=== PATIENT | male | born 1980 | race Caucasian/White ===

== ENCOUNTER 2017-06-06 22:44 | Emergency (ER) | payer BC, MEDICAID ==
[~2017-06-06] VITALS: Ht 175.3 cm; Wt 64.5 kg
[~2017-06-06 22:44] MED LIST: ANTI10DR6 EACH EAR
[2017-06-06] MEDS ORDERED: LIDOcaine 0.5% W/epiNEPHrine 1:200,000 50ml vial IJ ONE (23:25)
[2017-06-06] MEDS ORDERED: LIDOcaine 1.5% w/epinephrine 1:200,000 5ml ampul IJ ONE (23:45)
[2017-06-07] MEDS ORDERED: IBUP-1984 PO (01:26)
[2017-06-07] MEDS ORDERED: CEPH-572 PO (01:26)
[2017-06-07] MEDS ORDERED: ACET1TAB12 PO (01:26)
[2017-06-07 02:00] VITALS: BP 135/67
== END 2017-06-07 02:02 | disposition home or self-care (01) ==
LOC: ER 22:44
DX: S01.112A Laceration without foreign body of left eyelid and periocular area, initial encounter (principal); S01.412A Laceration without foreign body of left cheek and temporomandibular area, initial encounter; S60.221A Contusion of right hand, initial encounter; Y04.8XXA Assault by other bodily force, initial encounter; Y93.89 Activity, other specified; Y92.89 Other specified places as the place of occurrence of the external cause; Y99.8 Other external cause status
CPT/HCPCS: 12013; 73130; 99284; A6449; J3490

== ENCOUNTER 2017-10-04 13:24 | Emergency (ER) | payer BC ==
[~2017-10-04] VITALS: Ht 597.6 cm; Wt 61.4 kg
[~2017-10-04 13:24] MED LIST changes: +ACET1TAB12 PO
[2017-10-04 13:33] VITALS: BP 156/94
[2017-10-04] MEDS ORDERED: HYDR-3965 PO (13:57)
[2017-10-04] MEDS ORDERED: PENI500T2 PO (13:57)
== END 2017-10-04 14:17 | disposition home or self-care (01) ==
LOC: ER 13:24
DX: K08.89 Other specified disorders of teeth and supporting structures (principal); Z79.899 Other long term (current) drug therapy; Z56.0 Unemployment, unspecified
CPT/HCPCS: 99283; 99284

== ENCOUNTER 2018-01-19 08:10 | Emergency (ER) | payer BC, MEDICAID ==
[~2018-01-19] VITALS: Ht 175.3 cm; Wt 68.0 kg
[2018-01-19 09:02] LABS: BASOPHILS # (AUTO) 0.1 X10'3 (0-0.2); BASOPHILS % (AUTO) 0.9 % (0-1); EOSINOPHILS # (AUTO) 0.1 X10'3 (0-0.9); EOSINOPHILS % (AUTO) 0.4 % (0-6); HEMATOCRIT 49.3 % (42.0-52.0); HEMOGLOBIN 16.6 g/dl (14.0-17.9); LYMPHOCYTES % (AUTO) 7.4 % (21-51); MEAN CORPUSCULAR HEMOGLOBIN 30.3 PG (27.0-31.0); MEAN CORPUSCULAR HGB CONC 33.7 % (33.0-36.5); MEAN PLATELET VOLUME 8.5 FL (7.4-10.4); MONOCYTES # (AUTO) 0.9 X10'3 (0-0.9); MONOCYTES % (AUTO) 6.7 % (2-12); NEUTROPHILS # (AUTO) 11.8 X10'3 (1.8-7.7); NEUTROPHILS % (AUTO) 84.6 % (42-75); PLATELET COUNT 280 X10'3 (140-440); RED BLOOD COUNT 5.48 X10'6 (4.70-6.10)
[2018-01-19 09:36] LABS: ALANINE AMINOTRANSFERASE 37 U/L (12-78); ALBUMIN 4.8 G/DL (3.4-5.0); ALBUMIN/GLOBULIN RATIO 1.3 (1.1-1.5); ALKALINE PHOSPHATASE 118 IU/L (46-116); ANION GAP 10 (8-16); ASPARTATE AMINO TRANSFERASE 35 U/L (10-37); BILIRUBIN,TOTAL 0.6 MG/DL (0.1-1.0); BLOOD UREA NITROGEN 9 MG/DL (7-18); BUN/CREATININE RATIO 9.9 (5.4-32.0); CALCIUM 9.5 MG/DL (8.5-10.1); CHLORIDE 99 MMOL/L (99-107); CREATININE 0.91 MG/DL (0.60-1.10); GLUCOSE 79 MG/DL (70-104); POTASSIUM 3.6 MMOL/L (3.5-5.1); SODIUM 140 MMOL/L (135-145); TOTAL PROTEIN 8.6 G/DL (6.4-8.2); eGFR > 90 ML/MIN
[2018-01-19] MEDS ORDERED: diphenhydrAMINE 25mg capsule PO ONE (09:45)
[2018-01-19] MEDS ORDERED: proCHLORperazine 10mg tablet PO ONE (09:45)
[2018-01-19 09:50] LABS: ETHANOL < 0.010 GM/DL (0.0-0.010)
[2018-01-19 10:28] LABS: PLATELET ESTIMATE NORMAL; TOTAL CELLS COUNTED 100
[2018-01-19 10:29] LABS: TOXIC GRANULATION 2+; TOXIC VACUOLATION FEW
[2018-01-19 10:33] LABS: CLARITY,URINE CLEAR (Clear); COLOR,URINE YELLOW (Yellow); GLUCOSE, URINE NEGATIVE (Neg); KETONES,URINE >=80 mg/dl (Neg); LEUKOCYTE ESTERASE ,URINE NEGATIVE (Neg); NITRITES, URINE NEGATIVE (Neg); OCCULT BLOOD,URINE NEGATIVE (Neg); PROTEIN,URINE 100 mg/dl (Neg)
[2018-01-19 10:42] LABS: UA COLLECTION TYPE CLN CATCH MIDSTREAM
[2018-01-19 10:44] LABS: URINE AMPHETAMINE SCREEN NEGATIVE (Neg); URINE BARBITUATE SCREEN NEGATIVE (Neg); URINE BENZODIAZEPINES SCREEN NEGATIVE (Neg); URINE CANNABINOID SCREEN NEGATIVE (Neg); URINE COCAINE SCREEN NEGATIVE (Neg); URINE METHADONE SCREEN NEGATIVE (Neg); URINE OPIATE SCREEN NEGATIVE (Neg); URINE PHENCYCLIDINE SCREEN NEGATIVE (Neg)
[2018-01-19 10:45] LABS: MUCUS STRANDS FEW /LPF (Neg); SQUAMOUS EPITHELIAL CELL,UR FEW /LPF (FEW)
[2018-01-19 10:47] LABS: BACTERIA,URINE NONE SEEN /HPF (Neg); RBC,URINE NONE SEEN /HPF (0-2); WBC,URINE 0-4 /HPF (0-4)
[2018-01-19] MEDS: citalopram 20mg tablet PO SCH (13:12)
[2018-01-20 05:36] VITALS: BP 133/76
[2018-01-20] MEDS: citalopram 20mg tablet PO SCH (09:26)
[2018-01-20] MEDS ORDERED: proCHLORperazine 10mg tablet PO PRN (13:20)
== END 2018-01-20 16:54 ==
LOC: ER 08:11
DX: R45.851 Suicidal ideations (principal); R11.2 Nausea with vomiting, unspecified; R19.7 Diarrhea, unspecified; R07.9 Chest pain, unspecified; R06.02 Shortness of breath; Z56.0 Unemployment, unspecified
CPT/HCPCS: 36415; 71046; 80053; 80305; 80320; 81001; 84443; 85025; 93005; 99285; Q0163; Q0164

== ENCOUNTER 2018-04-19 13:28 | Emergency (ER) | payer MEDICAID ==
[~2018-04-19] VITALS: Ht 175.3 cm; Wt 65.0 kg
[2018-04-19] MEDS ORDERED: HYDROcodone/acetaminophen 5mg/325mg tablet PO ONE (16:15)
[2018-04-19 16:27] VITALS: BP 144/78
== END 2018-04-19 16:28 | disposition home or self-care (01) ==
LOC: ER 13:28
DX: S60.221A Contusion of right hand, initial encounter (principal); Z79.899 Other long term (current) drug therapy; Z98.890 Other specified postprocedural states; Z56.0 Unemployment, unspecified; W22.8XXA Striking against or struck by other objects, initial encounter; Y93.89 Activity, other specified; Y92.89 Other specified places as the place of occurrence of the external cause; Y99.8 Other external cause status
CPT/HCPCS: 73130; 99283

== ENCOUNTER 2020-03-12 11:26 | Emergency (ER) | payer MEDICAID, OTHER ==
[~2020-03-12] VITALS: Ht 175.3 cm; Wt 63.6 kg
[2020-03-12 11:31] VITALS: BP 115/79
[2020-03-12] MEDS ORDERED: CYCL-1 PO (12:01)
[2020-03-12] MEDS ORDERED: IBUP-1984 PO (12:01)
== END 2020-03-12 12:32 | disposition home or self-care (01) ==
LOC: ER 11:27
DX: M54.5 Low back pain (principal); R20.0 Anesthesia of skin; G89.29 Other chronic pain; Z98.890 Other specified postprocedural states; Z79.899 Other long term (current) drug therapy
CPT/HCPCS: 99283

== ENCOUNTER 2024-11-20 11:52 | Emergency (ER) | payer MEDICAID ==
[~2024-11-20] VITALS: Ht 175.3 cm; Wt 61.7 kg
[~2024-11-20 11:52] MED LIST changes: +CYCL-1 PO
[2024-11-20 12:02] VITALS: TEMP 97.8; O2SAT 98
--- NOTE | 2024-11-20 12:30 | ELECTROCARDIOGRAPH REPORT ---
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
--- NOTE | 2024-11-20 13:10 | RADIOLOGY REPORT ---
EXAM: DI CHEST,SINGLE VIEW Indication: CP Technique: Single frontal view of the chest was obtained Comparison: None FINDINGS: Lines and Tubes: None Lungs: No focal consolidation. Pleura: No effusion. No pneumothorax. Cardiomediastinal contours: Unremarkable Bones: No acute osseous abnormality. IMPRESSION: No acute cardiopulmonary disease.
[2024-11-20 13:17] LABS: MEAN PLATELET VOLUME 9.2 FL (7.4-10.4); RED CELL DISTRIBUTION WIDTH 13.5 % (11.5-14.5)
[2024-11-20 13:31] LABS: CREATININE 0.67 MG/DL (0.60-1.10); PRO BRAIN NATRIURETIC PEPTIDE 31 PG/ML (0-125); TOTAL CARBON DIOXIDE 31.0 MMOL/L (24-32); eCRCL 125 ML/MIN; eGFR > 90 ML/MIN
--- NOTE | 2024-11-20 14:08 | Physician Documentation ---
History of Present Illness ~ Chief Complaint: Chest Pain Stated Complaint: CP LEFT ARM NUMBNESS Time Seen by MD: 12:59 Primary Medical Doctor: Bina Collazo NP Mode of Arrival: POV, Ambulatory HPI This 44-year-old male presents to the ED with a complaint of a few hours of left-sided chest pain that radiated numbness down to his left arm. States he does have a history of panic attacks but reports that he isn't think that that is what is going on. He denies any exacerbating or alleviating factors. says "just time makes the symptoms go away" Denies any cardiac or significant medical history however he says that has dad recently which has been bothering him. He adds that he does have a history of poorly managed stress and has large amounts of caffeine daily along with poor sleep. Denies any alcohol use at this time Tetanus within 5 Years?: No Allergies: Coded Allergies: No Known Allergies (Unverified , 11/20/24) Active Prescriptions See Medication Reconciliation Form. Medication Reconciliation Scheduled Antipyrine/Benzocaine (Antipyrine-Benzocaine Ear Drop), 2-4 DROP EACH EAR Q2H PRN Cyclobenzaprine* (Cyclobenzaprine*), 1 TAB PO Q8H Hydroxyzine Hcl* (Atarax*), 1 TAB PO Q12H Scheduled PRN Acetaminophen with Codeine (Tylenol with Codeine #3 Tablet), 1 TAB PO Q4HPRN PRN for pain Past Medical History Past Medical History: Chronic Back Pain Past Surgical History: orthopedic surgeries Alcohol Use: None Drug Use: none Lives with: Family Lives In: Home Occupation: employed Review of Systems All Other Systems at this time: Reviewed and Negative ROS As stated above in the HPI, otherwise all systems are reviewed and negative. Physical Exam Vital Signs: Temperature: 97.8, Source: Temporal, Heart Rate: 88, Respiratory Rate: 18, BP: 123/76, Pulse Oximetry: 98, Weight: 61.700 Physical Exam General: Alert, no apparent distress. Respiratory: Lungs clear, no respiratory distress. Cardiovascular: Regular rate and rhythm, no murmurs. Gastrointestinal: Soft, nontender, nondistended. Bowels sounds present. Neurologic: Oriented x4. Psychiatric: Normal mood and affect. Skin: Normal color, warm and dry. No edema, no ecchymosis. Progress Results/Orders Results/Orders Vital Signs 11/20/24 11/20/24 12:02 12:45 Temp 97.8 Pulse 88 Resp 18 18 B/P (MAP) 123/76 Pulse Ox 98 Laboratory Tests Test 11/20/24 11:58 White Blood Count 7.6 Red Blood Count 5.08 Hemoglobin 15.4 Hematocrit 45.8 Mean Corpuscular Volume 90.2 Mean Corpuscular Hemoglobin 30.3 Mean Corpuscular Hemoglobin Concent 33.6 Red Cell Distribution Width 13.5 Platelet Count 239 Mean Platelet Volume 9.2 Neutrophils (%) (Auto) 53.0 Lymphocytes (%) (Auto) 32.6 Monocytes (%) (Auto) 8.9 Eosinophils (%) (Auto) 4.3 Basophils (%) (Auto) 1.2 H Neutrophils # (Auto) 4.0 Lymphocytes # (Auto) 2.5 Monocytes # (Auto) 0.7 Eosinophils # (Auto) 0.3 Basophils # (Auto) 0.1 CBC Comment Sodium Level 139 Potassium Level 4.4 Chloride Level 104 Carbon Dioxide Level 31.0 Anion Gap 4 L Blood Urea Nitrogen 8 Creatinine 0.67 Estimated GFR/1.73 m2 > 90 BUN/Creatinine Ratio 11.9 Glucose Level 71 Calcium Level 9.2 Troponin I High Sensitivity < 4 L Troponin I High Sens Percent Delta Troponin I Hi Sens Absolute Change Pro-B-Type Natriuretic Peptide 31 Albumin 4.2 Chemistry Comments Medical Decision Making Findings This 44-year-old male presented anxious upon my entering into his ED room. He is very detailed history of symptoms presents more as poorly managed anxiety and/or stress rather than cardiac symptoms. His EKG was unremarkable as was his laboratory values. His symptoms have mostly mostly resolved. He had discussed with him that this is likely clinically correlated to anxiety. I do not see any reason to pursue any further evaluation that is cardiac in nature.. I recommended increase exercise decrease caffeine and better sleep cycling. Differential Dx:Considerations: Include: Chest wall contusion, Flail chest, Myocardial contusion, Pneumothorax, Pulmonary contusion, Rib fracture, Renal contusion, Splenic fracture, Tension pneumothorax, Other Departure Disposition: HOME / SELF CARE / HOMELESS Impression: Primary Impression: Chest wall pain Additional Impression: Anxiety about health Discharge Instructions: Managing Anxiety, Adult Referrals: NO PRIMARY CARE PROVIDER (PCP) Prescriptions Hydroxyzine Hcl* (Atarax*) 25 Mg Tablet 1 TAB PO Q12H for anxiety for 30 Days, #60 TAB Prov: ZAID MOORE OUTSIDE SALES ACCOUNT REPRESENTATIVE 11/20/24 Education Educated: Patient Educated regarding: diagnosis Signature Scribe Signature: f Attestation: Scribed for Zaid Moore Barn Operator by Zaid Moore - JUNIOR . 11/20/24 14:30 ZAID MOORE NP Nov 20, 2024 14:08
[2024-11-20] MEDS ORDERED: HYDR-3686 PO (14:30)
[2024-11-20 14:35] VITALS: BP 100/64; PULSE 63; RESP 13
== END 2024-11-20 14:44 | disposition home or self-care (01) ==
LOC: ER 11:53
DX: R07.89 Other chest pain (principal); R20.0 Anesthesia of skin; R06.02 Shortness of breath; F41.9 Anxiety disorder, unspecified
CPT/HCPCS: 36415; 71045; 80048; 83880; 84484; 85025; 93005; 99285

== ENCOUNTER 2025-03-08 20:43 | Emergency (ER) | payer SELFPAY ==
[~2025-03-08] VITALS: Ht 175.3 cm; Wt 65.1 kg
[2025-03-08 20:45] VITALS: BP 130/82; PULSE 95; RESP 16; O2SAT 100
[2025-03-08] MEDS ORDERED: AMOX-117 PO (20:52)
--- NOTE | 2025-03-08 20:52 | Physician Documentation ---
History of Present Illness ~ Chief Complaint: Bite-animal Stated Complaint: CAT BITE Time Seen by MD: 20:53 Primary Medical Doctor: Bina Collazo NP HPI 44-year-old male who presents to the emergency department reporting that he was bit on the left arm by his cat this morning around 630. Unknown tetanus status. Denies any other concerns or symptoms. Tetanus within 5 years?: No Medication Reconciliation Allergies: Coded Allergies: No Known Allergies (Unverified , 11/20/24) Scheduled Amox Tr/Potassium Clavulanate (Augmentin 875-125 Tablet), 1 TAB PO Q12H Antipyrine/Benzocaine (Antipyrine-Benzocaine Ear Drop), 2-4 DROP EACH EAR Q2H PRN Cyclobenzaprine* (Cyclobenzaprine*), 1 TAB PO Q8H Scheduled PRN Acetaminophen with Codeine (Tylenol with Codeine #3 Tablet), 1 TAB PO Q4HPRN PRN for pain Past Medical History Past Medical History: Chronic Back Pain Past Surgical History: orthopedic surgeries Alcohol Use: None Drug Use: none Lives with: Family Lives In: Home Occupation: employed Review of Systems ROS As stated above in the HPI, otherwise all systems are reviewed and negative. Physical Exam Vital Signs: Temperature: 99.2, Source: Oral, Heart Rate: 95, Respiratory Rate: 16, BP: 130/82, Pulse Oximetry: 100, Weight: 65.100 Physical Exam General: Alert, no apparent distress. Neck: Full range of motion. Respiratory: Lungs clear, no respiratory distress. Chest: No accessory muscle use. Cardiovascular: Regular rate and rhythm, no murmurs. Gastrointestinal: Soft, nontender, nondistended. Bowels sounds present. Extremities: Normal range of motion, no deformity. Neurologic: Oriented x4. Psychiatric: Normal mood and affect. Skin: Normal color, warm and dry. Several puncture wounds with mild surrounding erythema left forearm. Progress Results/Orders Results/Orders Orders - JEREMIAH GUZMAN NP Amox Tr/Potassium Clavulanate (Augmentin (03/08/25 20:55) Vital Signs 03/08/25 20:45 Temp 99.2 Pulse 95 Resp 16 B/P (MAP) 130/82 Pulse Ox 100 Medical Decision Making Additional information obtaine: other Findings patient is good historian. Differential Dx:Considerations: Include: Abrasion, Allergic reaction, Anaphylaxis, Cellulitis, Contusion, Fracture, Hematoma, Insect envenomation, Laceration, Neurovascular injury, Punture wound, Retained foreign body, Urticaria Departure Time of Disposition: 20:51 Disposition: 01 HOME / SELF CARE / HOMELESS Impression: Primary Impression: Cat bite Qualified Codes: W55.01XA - Bitten by cat, initial encounter Condition: Stable Discharge Instructions: Animal Bite, Adult Additional Instructions: Your tetanus was updated. You were given the 1st dose of Augmentin. Tylenol or Ibuprofen for pain per label instructions. Please complete the course, next dose due tomorrow morning. Please return if worse. Referrals: NO PRIMARY CARE PROVIDER (PCP) Prescriptions Amox Tr/Potassium Clavulanate (Augmentin 875-125 Tablet) 1 Each Tablet 1 TAB PO Q12H for 7 Days, #14 TAB Prov: JEREMIAH GUZMAN NP 03/08/25 Education Educated: Patient Educated regarding: diagnosis, treatment, prognosis, need for follow up Signature Scribe Signature: x Attestation: The note accurately reflects work and decisions made by me.Jeremiah Roldan NP 03/08/25 20:50 JEREMIAH GUZMAN NP Mar 08, 2025 20:52
[2025-03-08] MEDS: bacitracin 15gm ointment TP ONE (21:06)
[2025-03-08] MEDS: amox tr/potassium clavulanate 875/125mg TAB PO ONE (21:06)
[2025-03-08] MEDS: TETanus/Pertussis (Acell)/Diphther VAC/PF (Tdap-Adult) 0.5ml syringe IMVAC ONE (21:07)
[2025-03-08 21:40] VITALS: TEMP 99.2
== END 2025-03-08 21:43 | disposition home or self-care (01) ==
LOC: ER 20:44
DX: S51.832A Puncture wound without foreign body of left forearm, initial encounter (principal); G89.29 Other chronic pain; Z79.899 Other long term (current) drug therapy; Z98.890 Other specified postprocedural states; W55.01XA Bitten by cat, initial encounter; Y93.89 Activity, other specified; Y92.89 Other specified places as the place of occurrence of the external cause; Y99.8 Other external cause status
CPT/HCPCS: 90471; 90715; 99283